=== PATIENT | female | born 1960 | race Caucasian/White ===

== ENCOUNTER → 2017-03-14 | Outpatient (CLI) | payer BC ==
--- NOTE | 2017-03-14 15:58 | BD ---
EXAMINATION TYPE: MG DEXA axial skeleton. DATE OF EXAM: 03/14/2017 COMPARISON: NONE CLINICAL HISTORY: PT IS A 56 YR OLD FEMALE....ICD-10 CODE: N95.5 MENOPAUSAL DISORDER Height: 65 Weight: 220 FRAX RISK QUESTIONS: Alcohol (3 or more units per day): NO Family History (Parent hip fracture): NO FRACTURES Glucocorticoids (More than 3mos): NO (Ex: prednisone, prednisolone, methylprednisolone, dexamethasone, and hydrocortisone). History of Fracture in Adulthood: NO Secondary Osteoporosis: NO 1. Type 1 Diabetes: NO 2. Hyperthyroidism: NO 3. Menopause before 45: NO 4. Malnutrition: RASHEL 5. Chronic liver disease: NO Rheumatoid Arthritis: NO Current Tobacco Use: NO RISK FACTORS HISTORY OF: Family History of Osteoporosis: YES, MOTHER AND GRANDMOTHER....NO BROKEN HIPS Active: YES Diet low in dairy products/other sources of calcium: NO Postmenopausal woman: CHRISTA, 50 YRS OLD Hyperparathyroidism: NO Adrenal Insufficiency: NO MEDICATIONS: Additional Medications: CELEXA, WELLBUTRIN, STATIN FOR CHOLESTEROL Additional History: NONE TO NOTE EXAM MEASUREMENTS: Bone mineral densitometry was performed using the [employer] System. Bone mineral density as measured about the Lumbar spine is: ----- L1-L4(G/cm2): 1.282 T Score Values are as follows: ----- L1: 0.3 ----- L2: 1.2 ----- L3: 0.7 ----- L4: 1.0 ----- L1-L4: 0.8 Bone mineral density THIS IS HER FIRST BONE DENSITY TEST.....BASELINE STUDY Bone mineral density about the R hip (g/cm2): 1.099 Bone mineral density about the L hip (g/cm2): 1.098 T Score values are as follows: -----R Neck: -0.3 -----L Neck: -0.6 -----R Total: 0.7 -----L Total: 0.7 Bone mineral density BASELINE STUDY FRAX%'S: THERE IS A 5.0% CHANCE OF A MAJOR OSTEOPOROTIC FX AND A 0.1% FOR A HIP FX.....PROBABILITY OF FX IN 10 YRS TIME IMPRESSION: Normal (Values between +1 and -1 indicate normal bone mass). Consider repeating this study in 5 year s or sooner if there is some new clinical indication. NOTE: T-SCORE=SD OF THE YOUNG ADULT MEAN.
--- NOTE | 2017-03-15 09:54 | MM ---
Reason for exam: screening (asymptomatic). Last mammogram was performed 1 year and 5 months ago. History: Patient is postmenopausal. Took hormonal contraceptives for 9 years beginning at age 20. Physical Findings: A clinical breast exam by your physician is recommended on an annual basis and results should be correlated with mammographic findings. MG Screening Mammo w CAD Bilateral CC and MLO view(s) were taken. Prior study comparison: October 27, 2015, bilateral MG screening mammo w CAD. September 23, 2014, bilateral MG screening mammo w CAD. There are scattered fibroglandular densities. Finding: There are typically benign calcifications. No significant changes in finding since October 27, 2015 and September 23, 2014. ASSESSMENT: Benign, BI-RAD 2 RECOMMENDATION: Routine screening mammogram of both breasts in 1 year.
== END | disposition home or self-care (01) ==
LOC: RADMAMWWP 14:35
PROVIDERS: ATTEND Family Medicine
DX: Z12.31 Encounter for screening mammogram for malignant neoplasm of breast (principal); N95.9 Unspecified menopausal and perimenopausal disorder
CPT/HCPCS: 77080; G0202

== ENCOUNTER → 2018-03-19 | Outpatient (CLI) | payer BC ==
--- NOTE | 2018-03-24 11:18 | MM ---
Reason for exam: screening (asymptomatic). Last mammogram was performed 1 year ago. History: Patient is postmenopausal. Took hormonal contraceptives for 9 years beginning at age 20. Physical Findings: A clinical breast exam by your physician is recommended on an annual basis and results should be correlated with mammographic findings. MG Screening Mammo w CAD Bilateral CC and MLO view(s) were taken. Prior study comparison: March 14, 2017, bilateral MG screening mammo w CAD. October 27, 2015, bilateral MG screening mammo w CAD. There are scattered fibroglandular densities. No suspicious abnormality. No significant changes when compared with prior studies. ASSESSMENT: Negative, BI-RAD 1 RECOMMENDATION: Routine screening mammogram of both breasts in 1 year.
== END ==
LOC: RADMAMWWP 07:41
PROVIDERS: ATTEND Obstetrics & Gynecology
DX: Z12.31 Encounter for screening mammogram for malignant neoplasm of breast (principal)
CPT/HCPCS: 77067

== ENCOUNTER → 2018-03-26 | Outpatient (CLI) | payer OTHER ==
--- NOTE | 2018-03-26 12:54 | MR ---
EXAMINATION TYPE: MR knee RT wo con DATE OF EXAM: 03/26/2018 COMPARISON: None HISTORY: Degenerative medial meniscus tear, right TECHNIQUE: Multiplanar, multisequence imaging of the right knee is performed without IV contrast. FINDINGS: MEDIAL MENISCUS: There is an oblique tear of the posterior horn of the medial meniscus with extent in to the meniscal body. Anterior horn is unremarkable. No extent into the meniscal root. There is assoc iated 2 mm meniscal extrusion. LATERAL MENISCUS: Anterior and posterior horns are intact without tear. CRUCIATE LIGAMENTS: The anterior and posterior cruciate ligaments are intact and unremarkable. COLLATERAL LIGAMENTS: The medial collateral ligament and lateral collateral ligament complex are inta ct and unremarkable. EXTENSOR MECHANISM: Visualized quadriceps and patellar tendons are intact. EFFUSION: There is a small suprapatellar joint effusion with internal complexity suggesting synoviti s. POPLITEAL CYST: Small popliteal fossa cyst is noted. TRICOMPARTMENT SPACES: Tricompartmental spaces are mildly narrowed with small tibial plateau and femo ral condylar osteophytes. CARTILAGE: Mild heterogeneity is seen of the patellofemoral cartilage without focal defect. There is a partial thickness tibial defect with underlying focal bone marrow on coronal fat-sat image 15 with chondral defect measuring 1.5 cm. Partial-thickness defect of the opposing medial femoral condyle mike sures 6 mm. BONE MARROW SIGNAL: No focal abnormal marrow signal is appreciated. OTHER: Minimal amount of prepatellar and infrapatellar subcutaneous soft tissue swelling is noted. T hickening of the superior plica is also incidentally seen. IMPRESSION: 1. Oblique tear of the posterior horn of the medial meniscus with extent into the meniscal body and 2 mm of meniscal extrusion. 2. Mild tricompartmental arthropathy and chondrosis with partial-thickness tibial and opposing surfac e medial femoral condylar defects measuring 1.5 cm and 6 mm respectively. Small focal area of bone ma rrow edema seen within the medial tibial plateau underlying the chondral defect. 3. Incidentally noted thickening of the superior plica that can be seen in plica syndrome. 4. Small suprapatellar joint effusion without complexity suggesting synovitis.
== END ==
LOC: RADMRIMAIN 08:40
PROVIDERS: ATTEND Orthopaedic Surgery
DX: S83.241A Other tear of medial meniscus, current injury, right knee, initial encounter (principal); M12.861 Other specific arthropathies, not elsewhere classified, right knee; R93.7 Abnormal findings on diagnostic imaging of other parts of musculoskeletal system

== ENCOUNTER → 2019-05-13 | Outpatient (CLI) | payer BC ==
--- NOTE | 2019-05-14 13:56 | MM ---
Reason for exam: screening (asymptomatic). Last mammogram was performed 1 year and 2 months ago. History: Patient is postmenopausal. Took hormonal contraceptives for 9 years beginning at age 20. Physical Findings: A clinical breast exam by your physician is recommended on an annual basis and results should be correlated with mammographic findings. MG Screening Mammo w CAD Bilateral CC and MLO view(s) were taken. Prior study comparison: March 19, 2018, bilateral MG screening mammo w CAD. March 14, 2017, bilateral MG screening mammo w CAD. There are scattered fibroglandular densities. No significant changes when compared with prior studies. ASSESSMENT: Negative, BI-RAD 1 RECOMMENDATION: Routine screening mammogram of both breasts in 1 year.
== END | disposition home or self-care (01) ==
LOC: RADMAMWWP 07:04
PROVIDERS: ATTEND Obstetrics & Gynecology
DX: Z12.31 Encounter for screening mammogram for malignant neoplasm of breast (principal)
CPT/HCPCS: 77067

== ENCOUNTER → 2020-07-15 | Outpatient (CLI) | payer OTHER ==
--- NOTE | 2020-07-18 12:28 | MM ---
Reason for exam: screening (asymptomatic). Last mammogram was performed 1 year and 2 months ago. History: Patient is postmenopausal. Took hormonal contraceptives for 9 years beginning at age 20. Physical Findings: A clinical breast exam by your physician is recommended on an annual basis and results should be correlated with mammographic findings. MG 3D Screening Mammo W/Cad Bilateral CC and MLO view(s) were taken. Prior study comparison: May 13, 2019, bilateral MG screening mammo w CAD. March 19, 2018, bilateral MG screening mammo w CAD. There are scattered fibroglandular densities. Stable benign calcifications. There is no discrete abnormality. No significant changes when compared with prior studies. ASSESSMENT: Benign, BI-RAD 2 RECOMMENDATION: Routine screening mammogram of both breasts in 1 year.
== END ==
LOC: RADMAMWWP 07:12
PROVIDERS: ATTEND Family Medicine
DX: Z12.31 Encounter for screening mammogram for malignant neoplasm of breast (principal); Z78.0 Asymptomatic menopausal state
CPT/HCPCS: 77063; 77067

== ENCOUNTER 2020-07-26 08:25 | Day surgery (SDC) | payer OTHER ==
[2020-07-21 08:39] VITALS: BMI 35.4
[~2020-07-26 08:25] MED LIST: LACTATED RINGERS 1,000 ML IV SCH; PROPOFOL 10 MG/ML 20 ML VIAL IV ONE
[2020-07-26 08:46] VITALS: TEMP 97.8
[2020-07-26] MEDS ORDERED: LACTATED RINGERS 1,000 ML IV ONE (08:46)
[2020-07-26] MEDS ORDERED: LIDOCAINE 1% (10MG/ML) FOR IV START INTRADERMA ONE (08:47)
--- NOTE | 2020-07-26 09:08 | P.GSHP ---
History of Present Illness H&P Date: 07/26/20 Chief Complaint: Colon cancer screening Patient here today for colonoscopy. Last colonoscopy age 51. No bowel complaints. No family history of colon cancer. Past Medical History Past Medical History: Asthma, Hyperlipidemia, Osteoarthritis (OA) History of Any Multi-Drug Resistant Organisms: None Reported Past Surgical History: Appendectomy, Hysterectomy Past Anesthesia/Blood Transfusion Reactions: Motion Sickness, Postoperative Nausea & Vomiting (PONV) Smoking Status: Never smoker - Past Family History Mother Family Medical History: No Reported History Medications and Allergies Home Medications Medication Instructions Recorded Confirmed Type Cetirizine HCl [Zyrtec] 20 mg PO HS 07/21/20 07/21/20 History Cholecalciferol (Vitamin D3) 125 mcg PO DAILY 07/21/20 07/21/20 History [Vitamin D3 (5000 Iu)] Citalopram Hydrobromide [CeleXA] 20 mg PO HS 07/21/20 07/21/20 History Multivitamins, Thera [Multivitamin 1 tab PO DAILY 07/21/20 07/21/20 History (formulary)] Simvastatin [Zocor] 20 mg PO HS 07/21/20 07/21/20 History Vitamin B Complex 1 each PO DAILY 07/21/20 07/21/20 History buPROPion XL [Wellbutrin Xl] 150 mg PO HS 07/21/20 07/21/20 History Allergies Allergy/AdvReac Type Severity Reaction Status Date / Time Penicillins Allergy Rash/Hives Verified 07/21/20 08:08 wheat Allergy SHORTNESS Verified 07/21/20 08:09 OF BREATH Surgical - Exam Vital Signs Temp Pulse Resp BP Pulse Ox 97.8 F 78 18 170/67 99 07/26/20 08:45 07/26/20 08:45 07/26/20 08:45 07/26/20 08:45 07/26/20 08:45 Physical exam: General: Well-developed, well-nourished HEENT: Normocephalic, sclerae nonicteric Abdomen: Nontender, nondistended Extremities: No edema Neuro: Alert and oriented Assessment and Plan (1) Colon cancer screening Narrative/Plan: Will proceed with colonoscopy Current Visit: Yes Status: Acute Code(s): Z12.11 - ENCOUNTER FOR SCREENING FOR MALIGNANT NEOPLASM OF COLON SNOMED Code(s): 266088081
--- NOTE | 2020-07-26 09:27 | P.PCN ---
Date of Procedure: 07/26/20 Procedure(s) Performed: PREOPERATIVE DIAGNOSIS: Colon cancer screening POSTOPERATIVE DIAGNOSIS: Normal exam, slightly suboptimal prep PROCEDURE: Colonoscopy ANESTHESIA: MAC SURGEON: Himanshu Robert M.D. SPECIMENS: None ENDOSCOPIC PROCEDURE: The patient was placed on the endoscopy table in the left decubitus position. The Olympus colonoscope was inserted into the anus and passed under direct visualization to the base of the cecum. The appendiceal orifice was visualized. From that point the scope was slowly withdrawn inspecting all surfaces carefully. There were no neoplastic inflammatory or polypoid lesions throughout the cecum, ascending, transverse, descending, sigmoid and rectum. There was no visible diverticulosis noted. The patient's prep was slightly suboptimal limiting the mucosal visualization slightly. Digital rectal examination was normal. The patient was taken to the recovery room in stable condition per anesthesia guidelines. RECOMMENDATIONS: Resume diet. Follow-up colonoscopy in 10 years.
[2020-07-26 09:35] VITALS: RESP 16
[2020-07-26 09:48] VITALS: BP 143/85; PULSE 69
== END 2020-07-26 10:16 | disposition home or self-care (01) ==
LOC: ORWHC2ENDO 08:25
PROVIDERS: ATTEND Surgery
DX: Z12.11 Encounter for screening for malignant neoplasm of colon (principal); J45.909 Unspecified asthma, uncomplicated; E78.5 Hyperlipidemia, unspecified; M19.90 Unspecified osteoarthritis, unspecified site; F32.9 Major depressive disorder, single episode, unspecified; E66.9 Obesity, unspecified; Z98.890 Other specified postprocedural states; Z90.49 Acquired absence of other specified parts of digestive tract; Z90.710 Acquired absence of both cervix and uterus; Z87.898 Personal history of other specified conditions; Z91.89 Other specified personal risk factors, not elsewhere classified; Z79.899 Other long term (current) drug therapy; Z88.0 Allergy status to penicillin; Z91.018 Allergy to other foods; Z68.34 Body mass index [BMI] 34.0-34.9, adult
CPT/HCPCS: J2704; G0121; 45378

== ENCOUNTER → 2020-08-05 | Outpatient (CLI) | payer OTHER ==
[2020-08-05 19:06] LABS: Hemoglobin A1C 6.1 % (4.0-6.0)
[2020-08-05 20:47] LABS: Chol/HDL Ratio 3.57; LDL Cholesterol,Calculated 114.8 mg/dL (0.0-131.0); VLDL Calculation 29.2 mg/dL (5.00-40.00)
== END | disposition home or self-care (01) ==
LOC: LABWHC1 07:33
PROVIDERS: ATTEND Nurse Practitioner
DX: E78.00 Pure hypercholesterolemia, unspecified (principal); E55.9 Vitamin D deficiency, unspecified; R73.01 Impaired fasting glucose; R79.89 Other specified abnormal findings of blood chemistry
CPT/HCPCS: 36415; 80061; 82306; 83036; 84450

== ENCOUNTER → 2022-05-10 | Outpatient (CLI) | payer OTHER ==
--- NOTE | 2022-05-12 16:20 | MM ---
Reason for Exam: Screening (asymptomatic). Last mammogram was performed 1 year(s) and 10 month(s) ago. Patient History: Menarche at age 14. First Full-Term at age 29. Hysterectomy at age 50. Postmenopausal. Hormonal Contraceptives for 9 years from age 20 until age 29. Risk Values: Melva 5 year model risk: 1.6%. NCI Lifetime model risk: 8.1%. Prior Study Comparison: 03/19/2018 Bilateral Screening Mammogram, [facility]. 05/13/2019 Bilateral Screening Mammogram, [facility]. 07/15/2020 Bilateral Screening Mammogram, [facility]. Tissue Density: There are scattered fibroglandular densities. Findings: Analyzed By CAD. There is no suspicious group of microcalcifications or new suspicious mass in either breast. Overall Assessment: Benign, BI-RAD 2 Management: Screening Mammogram of both breasts in 1 year. 1. Patient should continue monthly self breast exams. 2. A clinical breast exam by your physician is recommended on an annual basis. 3. This exam should not preclude additional follow-up of suspicious palpable abnormalities. Electronically signed and approved by: Felipa Herrera M.D. Radiologist
== END | disposition home or self-care (01) ==
LOC: RADMAMWWP 16:39
PROVIDERS: ATTEND Family Medicine
DX: Z12.31 Encounter for screening mammogram for malignant neoplasm of breast (principal); Z78.0 Asymptomatic menopausal state
CPT/HCPCS: 77063; 77067

== ENCOUNTER → 2023-05-21 | Outpatient (CLI) | payer OTHER ==
--- NOTE | 2023-05-22 09:17 | MM ---
Reason for Exam: Screening (asymptomatic). Last screening mammogram was performed 12 month(s) ago. Patient History: Menarche at age 14. First Full-Term at age 29. Hysterectomy at age 50. Postmenopausal. Hormonal Contraceptives for 9 years from age 20 until age 29. Risk Values: Melva 5 year model risk: 1.6%. NCI Lifetime model risk: 7.9%. Prior Study Comparison: 03/14/2017 Bilateral Screening Mammogram, [facility]. 03/19/2018 Bilateral Screening Mammogram, [facility]. 05/13/2019 Bilateral Screening Mammogram, [facility]. 07/15/2020 Bilateral Screening Mammogram, [facility]. 05/10/2022 Bilateral MG 3D screening mammo w/cad, [facility]. Tissue Density: The breast tissue is almost entirely fat. Findings: Analyzed By CAD. There is no suspicious group of microcalcifications or new suspicious mass. Overall Assessment: Negative, BI-RAD 1 Management: Screening Mammogram of both breasts in [address] [facility] will attempt to contact patient to return for supplemental views and ultrasound if indicated. Patient should continue monthly self-breast exams. A clinical breast exam by your physician is recommended on an annual basis. This exam should not preclude additional follow-up of suspicious palpable abnormalities. Note on Melva scores and lifetime risk: 1. A Melva score greater than 3% is considered moderate risk. If this is the case, consider specialist referral to assess eligibility for a risk reducing agent. 2. If overall lifetime risk for the development of breast cancer is 20% or higher, the patient may qualify for future screening with alternating mammogram and breast MRI. Electronically signed and approved by: Faizan Hauser DO
== END | disposition home or self-care (01) ==
LOC: RADMAMWWP 06:47
PROVIDERS: ATTEND Family Medicine
DX: Z12.31 Encounter for screening mammogram for malignant neoplasm of breast (principal); Z78.0 Asymptomatic menopausal state
CPT/HCPCS: 77063; 77067